=== PATIENT | female | born 1990 | race Two or more races ===

== ENCOUNTER → 2024-09-25 | Outpatient (CLI) | payer MEDICAID, SELFPAY ==
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
[2024-09-25 11:48] LABS: HCG Qualitative,Urine Negative
== END | disposition home or self-care (01) ==
PROVIDERS: Referring Provider Internal Medicine Hematology & Oncology; Visit Provider Internal Medicine Hematology & Oncology
DX: D69.3 Immune thrombocytopenic purpura (principal); D69.41 Evans syndrome; Z32.00 Encounter for pregnancy test, result unknown
CPT/HCPCS: 71260; 81025; A4649; Q9967

== ENCOUNTER 2024-11-13 10:59 | Outpatient (RCR) | payer MEDICAID, SELFPAY ==
--- NOTE | 2024-11-13 14:46 | CTCFLWUP_ITS ---
Patient: REMEDIOS PIÑA : 1990 Page 2 of 2 FOLLOW UP NOTE DATE OF SERVICE: 11/13/2024 NAME: REMEDIOS PIÑA ACCOUNT: [id number] : 1990 AGE: 34 INTERVAL HISTORY: Complains of fatigue . Fatigue is grade 8 out of 10. Gradually getting worse and. Patient do not work and just attend school. 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 Patient failed on prednisone. 06/26/2018: She had splenectomy with normalization of the platelet counts. 11/25/2018: Patient is in the clinic today for follow-up. She had labs drawn on 11/19/2018. Platelet c ount is 480,000's. She is clinically doing very well. Denies any bleeding from nose gums blood in the urine or stool. 04/25/2019: Platelet count 538,000. 05/29/2019: Colonoscopy?mild nonspecific inflammation. 06/04/2019: Platelet count 515,000 08/11/2019: Platelet count to 525,000. 11/25/2019: Platelet count 495,000, hemoglobin 12.9, WBC 12.3. 03/08/2020: Platelet count 3000, hemoglobin 10.9, MCV 112.8, WBC 6.0. Presented with bruising. Patie nt was treated with platelet transfusion, IVIG. 03/09/2020?05/13/2020: Patient was treated with 40 mg Decadron for 4 days once a month for 3 months. 04/02/2020: Platelet count 366,000, WBC 9.2, hemoglobin 12.1, MCV 103. 04/30/2020: Platelet count 407,000, hemoglobin 11.8, WBC 10.6. 05/21/2020: Platelet count 404,000, WBC 14.2, hemoglobin 12.6. 07/09/2020: Platelet count 559,000, WBC 16.7, hemoglobin 12.3. 09/07/2020: WBC 14.3, hemoglobin 8.9, MCV 106, platelets 443,000. Creatinine 0.74, AST 48, ALT 97, T bili 0.5. 09/13/2020: Pelon positive autoimmune hemolytic anemia?WBC 16.5, hemoglobin 9.4, MCV 104, platelets 418,000, nucleated RBC 2%, T bili 0.7, LDH 382, reticulocyte count 8.5%, direct Pelon test positive for anti- IgG and anticomplement. Haptoglobin level less than 10. 09/13/2020: Patient is started on prednisone 60 mg p.o. daily along with Prilosec. 10/20/2002: Hemoglobin 12.1, MCV 104, platelets 544,000, WBC 17.9. 11/10/2020: Hemoglobin 12.7, MCV 101, WBC 14.6, platelets 578,000. 03/02/2021: Patient was admitted to [facility]. Patient had CT scan of the abdomen and pel vis with IV contrast to evaluate the cause for lower abdominal pain as well as hypotension. She was found to hav e thrombosed superior mesenteric vein. Secondary to marked mucosal edema/wall thickening within the distal small bowel was noted. During the hospital stay she was also found to have Covid infection. 03/03/2021: Patient had exploratory laparotomy, small bowel resection with primary anastomosis. During the hospital stay she was treated with rituximab for her autoimmune hemolytic anemia. 03/08/2021: Patient was seen by stage electrician helper at [facility] for acute kidney injury 03/11/2021: Patient was transferred to ICU for respiratory failure and intubated. 03/26/2021: Patient was transferred to [facility] 04/20/2021: Patient was readmitted to [facility] for dehydration. 05/07/2021?06/07/2021: Ms. Piña was admitted to [facility]. 08/18/2021: Hemoglobin 11.7, MCV 93, WBC 8.6, ANC 2.3, platelets 511,000, creatinine 1.34, T bili 0.4 , AST 39, ALT 40. 10/17/2021: Hemoglobin 10.7, MCV 92, WBC 10.7, ANC 3.6, platelets 413,000, creatinine 1.32, iron satu ration 46%, direct bili less than 0.1, indirect bili less than 0.1, folate 15.4, LDH 155, haptoglobin 119, Pelon test positive for IgG as well as complement 12/15/2021: WBC 16.4, hemoglobin 12.0, MCV 94, platelets 430,000, Pelon test positive for complement. Reticulocyte count 2.1%. 07/13/2022: Direct and indirect bilirubin less than 1.0, LDH 138, Pelon test negative, haptoglobin 16 0. CBC not done. 01/01/2023: Hemoglobin 12.3, MCV 91, WBC 12.2, ANC 5.8, platelets 501,000, creatinine 1.4, T. bili 0.3 , 08/06/2023: Hemoglobin 12.4, MCV 91, platelets 435,000, WBC 11.5, ANC 5.3, creatinine 1.3, Pelon carleen t negative. T. bili less than 0.2 10/31/2023: Hemoglobin 12.2, MCV 92, platelets 480,000, WBC 10.9, ANC 5.3, creatinine 1.22, Pelon te st negative, T. bili 0.3 02/04/2024: Hemoglobin 13.1, MCV 93, platelets 463,000, WBC 13.1, ANC 7.1, creatinine 1.07, Pelon carleen t negative, T. bili 0.2. 05/07/2024: Hemoglobin 12.8, MCV 91, platelets 433,000, WBC 10.9, ANC 5.7, creatinine 1.14, Pelon carleen t negative, T. bili 0.3. 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 docusate sodium - 100 mg 1 tab Daily 2. folic acid - 1 mg 1 tab Daily 3. montelukast - 10 mg 1 tab Daily 4. pantoprazole - 40 mg 1 Twice a Day 5. warfarin - 3 mg 1 tab Daily 6. Wellbutrin SR - 150 mg 1 tab Daily Medications Last Reconciled by Catina Escalera MA on 11/13/2024 ALLERGIES: No Known Drug Allergies REVIEW OF SYSTEMS: A complete 14-point review of systems was performed and is negative except as noted in interval histo ry. PHYSICAL EXAMINATION: VITAL SIGNS: Temperature?98, B/P?123/79, Oxygen?Saturation?95% Weight?145?lbs PAIN: 0 - No pain ECOG Performance Status: 1 - Symptomatic; ambulatory; restricted in strenuous activity GENERAL APPEARANCE: Appears well, in no apparent distress, appropriately interactive. HEENT: Normocephalic, no temporal wasting, normal conjunctiva, no scleral icterus, normal hearing, li ps without lesions, neck normal range of motion. CARDIOVASCULAR: Not assessed. PULMONARY: Normal respiratory effort, no respiratory distress or use of accessory muscles, speaking i n full sentences, no tachypnea. EXTREMITIES: No pedal edema or cyanosis. SKIN: Normal skin appearance. NEUROLOGIC: Alert and oriented x4. PSHYCHIATRIC: Appropriate affect, mood normal, behavior normal, intact thought and speech. LABORATORY DATA: I have personally reviewed and interpreted each of the patient?s relevant lab tests, abnormal finding s are below: Date 03/22/20 ??GLUCOSE,RANDOM?(mg/dL) 113?H ??BLOOD?UREA?NITROGEN?(mg/dL) 21 ??CREATININE?(mg/dL) 0.80 ??SODIUM?(mmol/L) 140 ??POTASSIUM?(mmol/L) 3.8 ??CHLORIDE?(mmol/L) 108?H ??CrCl?(CandG)?(ml/min) 112.10 ??AST/SGOT?(Unit/L) 40?H ??ALT/SGPT?(Unit/L) 122?H ??ALKALINE?PHOSPHATASE?(Unit/L) 123?H ??BILIRUBIN,?TOTAL?(mg/dL) 0.2?L ??PROTEIN?TOTAL?(gm/dl) 7.1 ??ALBUMIN,?SERUM?(gm/dl) 4.4 ??GLOBULIN?(gm/dl) 2.7 ??ALBUMIN/GLOBULIN?RATIO 1.6 ??CALCIUM,?SERUM?(mg/dL) 8.5 ??CALCIUM?SERUM?(CORRECTED)?(mg/dL) 8.5 ASSESSMENT/PLAN: #1 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 daily. PT and INR are being managed by her primary c are physician. Pelon test is negative, (05/07/2024). History of ITP and autoimmune hemolytic anemia. 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 Patient had small bowel resection at [facility]. History of Covid infection history of pulmonary embolism ITP currently in remission. Recently treated with IVIG as well as 3 cycles of high-dose Decadron as described above History of splenectomy. Antiphospholipid antibody syndrome. Currently on Coumadin 3 mg p.o. daily. #2 iron deficiency Ferritin is low along with a transferrin Symptomatic with fatigue Will give IV iron Patient has been on oral iron and not responding #3 monocytosis and lymphocytosis Patient have leukocytosis and excessive lymphocytes and monocytes Will get bone marrow biopsy done Referral to equipment operator for opinion and management CBC CMP IV iron ordered Bone marrow biopsy and follow-up with Dr. Martinez to make sure patient do not have leukemia RETURN TO CLINIC: 3 to 4 weeks with repeat iron labs BILLING AND COMPLIANCE: I reviewed external records from providers outside my specialty as summarized above. I spent a total of 50 minutes on this patient?s care on the day of their visit excluding time spent related to any bi lled procedures. This time includes time spent with the patient as well as time spent documenting in the medical record, reviewing patients records and tests, obtaining history, placing orders, communi cating with other healthcare professionals, counseling the patient, family or caregiver, and/or care coordination for the diagnoses above. Electronically Signed by: Joel Barrios MD T: 2:44 PM CC: PCP: Joel Barrios Referring: Joel Barrios This document was completed utilizing speech recognition software. Grammatical errors, random word in sertions, pronoun errors, and incomplete sentences are an occasional consequence of this system due t o software limitations, ambient noise, and hardware issues. Any formal questions or concerns about e content, text or information contained within the body of this dictation should be directly address ed to the provider for clarification.
== END 2024-11-21 23:59 | disposition home or self-care (01) ==
LOC: SCTC 10:59
PROVIDERS: PCP Nurse Practitioner Family; Referring Provider Internal Medicine Hematology & Oncology; Visit Provider Internal Medicine Hematology & Oncology
DX: D69.3 Immune thrombocytopenic purpura (principal); E61.1 Iron deficiency; D59.12 Cold autoimmune hemolytic anemia; D72.821 Monocytosis (symptomatic); D72.820 Lymphocytosis (symptomatic); Z86.711 Personal history of pulmonary embolism; Z90.81 Acquired absence of spleen; D68.61 Antiphospholipid syndrome; Z79.01 Long term (current) use of anticoagulants
CPT/HCPCS: 99212; G0463

== ENCOUNTER 2025-02-11 13:51 | Outpatient (RCR) | payer MEDICAID, SELFPAY ==
--- NOTE | 2025-02-11 14:35 | CTCFLWUP_ITS ---
Patient: REMEDIOS PIÑA : 1990 Page 2 of 2 FOLLOW UP NOTE DATE OF SERVICE: 02/11/2025 NAME: REMEDIOS PIÑA ACCOUNT: [id number] : 1990 AGE: 34 INTERVAL HISTORY: Remedios Piña presents for follow-up of abnormal blood counts and fatigue. She has a history of ITP and iron deficiency anemia. The patient reports significant improvement in her fatigue levels since the last visit. Previously, she rated her fatigue as 8 out of 10, but now it has decreased to 2-3 out of 10. She attributes this improvement to taking iron supplements as prescribed. The patient confirms she is taking 3 milligrams of Coumadin daily for an unspecified condition. She mentions that in the past, she received injections which helped significantly with her murmur. The patient denies alcohol consumption. She reports no new symptoms or concerns during this visit. Medical History - Iron deficiency anemia - Immune thrombocytopenia (ITP) Surgical History - Bone marrow biopsy performed by Dr. Jonathan Abraham Medications and Supplements - Iron - One tablet every other day - Helped with fatigue and improved hemoglobin levels - Cumide 3 mg daily - Injections (unspecified) - Helped with murmur - No longer taking Social History - Substance Use: Denies alcohol consumption Review of Systems General: Positive for fatigue, improved from 8/10 to 2-3/10. 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 Patient failed on prednisone. 06/26/2018: She had splenectomy with normalization of the platelet counts. 03/08/2020: Platelet count 3000, hemoglobin 10.9, MCV 112.8, WBC 6.0. Presented with bruising. Patient was treated with platelet transfusion, IVIG. 03/09/2020?05/13/2020: Patient was treated with 40 mg Decadron for 4 days once a month for 3 months. %, direct Pelon test positive for anti-IgG and anticomplement. Haptoglobin level less than 10. 09/13/2020: Patient is started on prednisone 60 mg p.o. daily along with Prilosec. 10/20/2002: Hemoglobin 12.1, MCV 104, platelets 544,000, WBC 17.9. 11/10/2020: Hemoglobin 12.7, MCV 101, WBC 14.6, platelets 578,000. 03/02/2021: Patient was admitted to [facility]. Patient had CT scan of the abdomen and pelvis with IV contrast to evaluate the cause for lower abdominal pain as well as hypotension. She was found to have thrombosed superior mesenteric vein. Secondary to marked mucosal edema/wall thickening within the distal small bowel was noted. During the hospital stay she was also found to have Covid infection. 03/03/2021: Patient had exploratory laparotomy, small bowel resection with primary anastomosis. During the hospital stay she was treated with rituximab for her autoimmune hemolytic anemia. 03/08/2021: Patient was seen by oil field laborer at [facility] for acute kidney injury 03/11/2021: Patient was transferred to ICU for respiratory failure and intubated. 03/26/2021: Patient was transferred to [facility] 04/20/2021: Patient was readmitted to [facility] for dehydration. 05/07/2021?06/07/2021: Ms. Piña was admitted to [facility]. 08/18/2021: Hemoglobin 11.7, MCV 93, WBC 8.6, ANC 2.3, platelets 511,000, creatinine 1.34, T bili 0.4, AST 39, ALT 40. 10/17/2021: Hemoglobin 10.7, MCV 92, WBC 10.7, ANC 3.6, platelets 413,000, creatinine 1.32, iron saturation 46%, direct bili less than 0.1, indirect bili less than 0.1, folate 15.4, LDH 155, haptoglobin 119, Pelon test positive for IgG as well as complement 12/15/2021: WBC 16.4, hemoglobin 12.0, MCV 94, platelets 430,000, Pelon test positive for complement. Reticulocyte count 2.1%. 07/13/2022: Direct and indirect bilirubin less than 1.0, LDH 138, Pelon test negative, haptoglobin 160. CBC not done. 01/01/2023: Hemoglobin 12.3, MCV 91, WBC 12.2, ANC 5.8, platelets 501,000, creatinine 1.4, T. bili 0.3, 08/06/2023: Hemoglobin 12.4, MCV 91, platelets 435,000, WBC 11.5, ANC 5.3, creatinine 1.3, Pelon test negative. T. bili less than 0.2 10/31/2023: Hemoglobin 12.2, MCV 92, platelets 480,000, WBC 10.9, ANC 5.3, creatinine 1.22, Pelon test negative, T. bili 0.3 02/04/2024: Hemoglobin 13.1, MCV 93, platelets 463,000, WBC 13.1, ANC 7.1, creatinine 1.07, Pelon test negative, T. bili 0.2. 05/07/2024: Hemoglobin 12.8, MCV 91, platelets 433,000, WBC 10.9, ANC 5.7, creatinine 1.14, Pelon test negative, T. bili 0.3. 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 docusate sodium - 100 mg 1 tab Daily 2. ferrous gluconate - 324 mg (38 mg iron) 1 tab TAKE 1 TAB EVERY OTHER DAY 3. folic acid - 1 mg 1 tab Daily 4. Lovenox - 60 mg/0.6 mL 60 mg As directed 5. montelukast - 10 mg 1 tab Daily 6. pantoprazole - 40 mg 1 Twice a Day 7. warfarin - 3 mg 1 tab Daily 8. Wellbutrin SR - 150 mg 1 tab Daily Medications Last Reconciled by Ashia De RN on 02/11/2025 ALLERGIES: No Known Drug Allergies REVIEW OF SYSTEMS: A complete 14-point review of systems was performed and is negative except as noted in interval history. PHYSICAL EXAMINATION: VITAL SIGNS: Temperature?99.4, B/P?131/86, Oxygen?Saturation?96% Weight?146?lbs PAIN: 0 - No pain GENERAL APPEARANCE: Appears well, in no apparent distress, appropriately interactive. HEENT: Normocephalic, no temporal wasting, normal conjunctiva, no scleral icterus, normal hearing, lips without lesions, neck normal range of motion. CARDIOVASCULAR: Not assessed. PULMONARY: Normal respiratory effort, no respiratory distress or use of accessory muscles, speaking in full sentences, no tachypnea. EXTREMITIES: No pedal edema or cyanosis. SKIN: Normal skin appearance. NEUROLOGIC: Alert and oriented x4. PSHYCHIATRIC: Appropriate affect, mood normal, behavior normal, intact thought and speech. LABORATORY DATA: I have personally reviewed and interpreted each of the patient?s relevant lab tests, abnormal findings are below: Date 03/16/20 03/22/20 ??WHITE?BLOOD?COUNT?(Thou/mm3) ? 12.7?H ??RED?BLOOD?COUNT?(Miln/mm3) ? 3.25?L ??HEMOGLOBIN?(gm/dl) ? 11.4?L ??HEMATOCRIT?(%) ? 33.4?L ??PLATELET?COUNT?(Thou/mm3) ? 81?L ??NEUTROPHILS?%,?AUTO?(%) ? 65 ??LYMPH?%,?AUTO?(%) ? 23 ??NEUTROPHILS,?AUTO?(Thou/mm3) ? 8.2?H ??GLUCOSE,RANDOM?(mg/dL) 102 113?H ??BLOOD?UREA?NITROGEN?(mg/dL) 17 21 ??CREATININE?(mg/dL) 0.80 0.80 ??SODIUM?(mmol/L) 138 140 ??POTASSIUM?(mmol/L) 3.8 3.8 ??CHLORIDE?(mmol/L) 103 108?H ??CrCl?(CandG)?(ml/min) 113.46 112.10 ??AST/SGOT?(Unit/L) 46?H 40?H ??ALT/SGPT?(Unit/L) 82?H 122?H ??ALKALINE?PHOSPHATASE?(Unit/L) 110 123?H ??BILIRUBIN,?TOTAL?(mg/dL) 0.2?L 0.2?L ??PROTEIN?TOTAL?(gm/dl) 6.9 7.1 ??ALBUMIN,?SERUM?(gm/dl) 3.8 4.4 ??GLOBULIN?(gm/dl) 3.1 2.7 ??ALBUMIN/GLOBULIN?RATIO 1.2 1.6 ??CALCIUM,?SERUM?(mg/dL) 8.3 8.5 ??CALCIUM?SERUM?(CORRECTED)?(mg/dL) 8.5 8.5 ??TOTAL?IRON?BINDING?CAP?(S*)?(mcg/dL) 332 ? ??UNBOUND?IBC?(mcg/dL) 270 ? ASSESSMENT/PLAN: #1 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 daily. PT and INR are being managed by her primary care physician. Pelon test is negative, (05/07/2024). History of ITP and autoimmune hemolytic anemia. 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 Patient had small bowel resection at [facility]. History of Covid infection history of pulmonary embolism ITP currently in remission. Recently treated with IVIG as well as 3 cycles of high-dose Decadron as described above History of splenectomy. Antiphospholipid antibody syndrome. Currently on Coumadin 3 mg p.o. daily. Leukocytosis with Lymphocytosis and Monocytosis Assessment: Recent labs show WBC of 11.6 x 10^9/L with elevated lymphocytes (4.8 x 10^9/L) and monocytes (1.1 x 10^9/L). This may be reactive or require further evaluation if persistent. Plan: - Monitor WBC and differential with repeat labs . Iron Deficiency Anemia Assessment: Patient's fatigue has improved significantly from 05/31 to 2-3/10, likely due to iron supplementation. Recent labs show improvement in hemoglobin from 13 to 12.6 g/dL. Platelets remain elevated at 577 x 10^9/L, which may be related to ongoing iron deficiency. LDH and haptoglobin are normal, indicating no active hemolysis. Plan: - Continue iron supplementation: one tablet every other day - Order repeat labs to monitor progress - Reassess iron status and symptoms at follow-up Elevated Liver Function Tests Assessment: Patient has elevated liver function tests with alkaline phosphatase of 131 U/L, AST of 54 U/L, and ALT of 82 U/L. Patient denies alcohol consumption. Further evaluation may be necessary to determine the etiology of these abnormalities. Plan: - Monitor LFTs with repeat labs History of Immune Thrombocytopenia (ITP) Assessment: Patient has a history of ITP. Current platelet count is elevated at 577 x 10^9/L, which may be related to iron deficiency rather than active ITP. No evidence of immune hemolytic anemia based on normal LDH and haptoglobin levels. Plan: - Continue monitoring platelet counts with repeat labs RETURN TO CLINIC: BILLING AND COMPLIANCE: I reviewed external records from providers outside my specialty as summarized above. I spent a total of 50 minutes on this patient?s care on the day of their visit excluding time spent related to any billed procedures. This time includes time spent with the patient as well as time spent documenting in the medical record, reviewing patients records and tests, obtaining history, placing orders, communicating with other healthcare professionals, counseling the patient, family or caregiver, and/or care coordination for the diagnoses above. Electronically Signed by: Joel Barrios MD T: 2:33 PM CC: PCP: Shauna Olsen Referring: Shauna Olsen This document was completed utilizing speech recognition software. Grammatical errors, random word insertions, pronoun errors, and incomplete sentences are an occasional consequence of this system due to software limitations, ambient noise, and hardware issues. Any formal questions or concerns about the content, text or information contained within the body of this dictation should be directly addressed to the provider for clarification.
== END 2025-02-18 23:59 | disposition home or self-care (01) ==
LOC: SCTC 13:51
PROVIDERS: PCP Nurse Practitioner Family; Referring Provider Nurse Practitioner Family; Visit Provider Internal Medicine Hematology & Oncology
DX: D69.3 Immune thrombocytopenic purpura (principal); D50.9 Iron deficiency anemia, unspecified; D59.12 Cold autoimmune hemolytic anemia; R74.8 Abnormal levels of other serum enzymes; D68.61 Antiphospholipid syndrome; Z86.711 Personal history of pulmonary embolism; Z79.01 Long term (current) use of anticoagulants; Z86.718 Personal history of other venous thrombosis and embolism; Z90.81 Acquired absence of spleen
CPT/HCPCS: 99212; G0463

== ENCOUNTER 2025-04-21 14:40 | Outpatient (RCR) | payer MEDICAID, SELFPAY ==
--- NOTE | 2025-05-10 21:29 | CTCFLWUP_ITS ---
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 Past medical history includes asplenia and colon cancer prevention monitoring. Bone marrow biopsy showed normal marrow with abnormal myeloid maturation and absent iron. Oral iron supplementation has been ineffective. The plan includes repeating iron studies after one week without supplements, pursuing insurance approval for iron infusions, and continuing Augmentin for the mosquito bite due to increased infection risk from asplenia. 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 The patient's hemoglobin has improved, but they are currently experiencing iron deficiency anemia. The patient reports that their iron levels are very low, with iron being completely absent in their bone marrow. Oral iron supplementation has not been effective in addressing this deficiency. Iron infusions were ordered in December but have not been received due to insurance requiring proof of necessity. The patient is currently taking codeine for an unspecified reason. Wang recently experienced a mosquito bite, which is of particular concern due to their lack of a spleen, putting them at higher risk for infections. They have been prescribed Augmentin to address this issue and prevent potential complications. The patient has a history of colon cancer prevention and follows up with a crm marketing executive regularly for colonoscopies. A recent colonoscopy showed no specific inflammation. The patient also underwent a bone marrow biopsy, which revealed normal marrow with abnormal myeloid maturation, no increased blast, and severely deficient basal iron. Medications and Supplements - Codeine - Iron tablets - Oral iron not effective. - Multivitamins - Iodine - Beta-ion - Augmentin - 20 tablets prescribed. - Take for 5-7 days. - Keep remaining for future infections. Objective: Physical Examination Respiratory: [place] something in lungs. Laboratory, Imaging, and Diagnostic Test Results - Blood work ([facility]): - Hemoglobin: Improved (specific value not provided) - Leukocytosis (specific value not provided) - Iron: Very low - Bone marrow biopsy: - Normal marrow - Abnormal myeloid maturation - No increased blast - Basal iron: Absent - Iron: Severely deficient - Colonoscopy: No specific inflammation - Previous results: - WBC: 3300 (date not specified) ONCOLOGY HISTORY: DIAGNOSIS: ?CloneDiagnosis? DATE OF DIAGNOSIS: STAGE/TNM: TREATMENT HISTORY: Care?Plan Start?Date Cycle Day Intent HISTORY OF PRESENT ILLNESS: PREVIOUS NOTE: Remedios Pike is a 34-year-old Turkmen-speaking female with history of ITP diagnosed in May 2018. Patient failed on prednisone. 06/26/2018: She had splenectomy with normalization of the platelet counts. 03/08/2020: Platelet count 3000, hemoglobin 10.9, MCV 112.8, WBC 6.0. Presented with bruising. Patient was treated with platelet transfusion, IVIG. 03/09/2020?05/13/2020: Patient was treated with 40 mg Decadron for 4 days once a month for 3 months. %, direct Pelon test positive for anti-IgG and anticomplement. Haptoglobin level less than 10. 09/13/2020: Patient is started on prednisone 60 mg p.o. daily along with Prilosec. 10/20/2002: Hemoglobin 12.1, MCV 104, platelets 544,000, WBC 17.9. 11/10/2020: Hemoglobin 12.7, MCV 101, WBC 14.6, platelets 578,000. 03/02/2021: Patient was admitted to [facility]. Patient had CT scan of the abdomen and pelvis with IV contrast to evaluate the cause for lower abdominal pain as well as hypotension. She was found to have thrombosed superior mesenteric vein. Secondary to marked mucosal edema/wall thickening within the distal small bowel was noted. During the hospital stay she was also found to have Covid infection. 03/03/2021: Patient had exploratory laparotomy, small bowel resection with primary anastomosis. During the hospital stay she was treated with rituximab for her autoimmune hemolytic anemia. 03/08/2021: Patient was seen by plastics fabricator and assembler at [facility] for acute kidney injury 03/11/2021: Patient was transferred to ICU for respiratory failure and intubated. 03/26/2021: Patient was transferred to [facility] 04/20/2021: Patient was readmitted to [facility] for dehydration. 05/07/2021?06/07/2021: Ms. Piña was admitted to [facility]. 08/18/2021: Hemoglobin 11.7, MCV 93, WBC 8.6, ANC 2.3, platelets 511,000, creatinine 1.34, T bili 0.4, AST 39, ALT 40. 10/17/2021: Hemoglobin 10.7, MCV 92, WBC 10.7, ANC 3.6, platelets 413,000, creatinine 1.32, iron saturation 46%, direct bili less than 0.1, indirect bili less than 0.1, folate 15.4, LDH 155, haptoglobin 119, Pelon test positive for IgG as well as complement 12/15/2021: WBC 16.4, hemoglobin 12.0, MCV 94, platelets 430,000, Pelon test positive for complement. Reticulocyte count 2.1%. 07/13/2022: Direct and indirect bilirubin less than 1.0, LDH 138, Pelon test negative, haptoglobin 160. CBC not done. 01/01/2023: Hemoglobin 12.3, MCV 91, WBC 12.2, ANC 5.8, platelets 501,000, creatinine 1.4, T. bili 0.3, 08/06/2023: Hemoglobin 12.4, MCV 91, platelets 435,000, WBC 11.5, ANC 5.3, creatinine 1.3, Pelon test negative. T. bili less than 0.2 10/31/2023: Hemoglobin 12.2, MCV 92, platelets 480,000, WBC 10.9, ANC 5.3, creatinine 1.22, Pelon test negative, T. bili 0.3 02/04/2024: Hemoglobin 13.1, MCV 93, platelets 463,000, WBC 13.1, ANC 7.1, creatinine 1.07, Pelon test negative, T. bili 0.2. 05/07/2024: Hemoglobin 12.8, MCV 91, platelets 433,000, WBC 10.9, ANC 5.7, creatinine 1.14, Pelon test negative, T. bili 0.3. Laboratory, Imaging, and Diagnostic Test Results - Most recent results: - CBC: WBC 11.6, Hemoglobin 13 g/dL, Platelets 577, Lymphocytes (elevated), Monocytes (elevated) - LFTs: ALK-phosphate 131 (high), AST 54 (mildly elevated), ALT 82 (mildly elevated) - LDH: Normal - Haptoglobin: Normal - Previous results: - CBC: WBC 10, Platelets 577, Monocytes 1.1 (elevated), Absolute lymphocytes 4.8 (elevated) - Hemoglobin: 12.6 g/dLOTHER MEDICAL HISTORY/CONDITIONS: OTHER MEDICAL HISTORY/CONDITIONS: FAMILY HISTORY: ?Clone Family Hx? 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 MEDICATIONS: 1. Augmentin - 500-125 mg 1 tab twice daily 2. docusate sodium - 100 mg 1 tab Daily 3. ferrous gluconate - 324 mg (38 mg iron) 1 tab TAKE 1 TAB EVERY OTHER DAY 4. folic acid - 1 mg 1 tab Daily 5. Lovenox - 60 mg/0.6 mL 60 mg As directed 6. montelukast - 10 mg 1 tab Daily 7. warfarin - 3 mg 1 tab Daily 8. Wellbutrin SR - 150 mg 1 tab Daily?[place]ra Meds? Medications Last Reconciled by Leslye Hernandez MA on 04/21/2025 ALLERGIES: No Known Drug Allergies REVIEW OF SYSTEMS: A complete 14-point review of systems was performed and is negative except as noted in interval history. PHYSICAL EXAMINATION:?CloneBlock PE? VITAL SIGNS: Temperature?98, B/P?129/85, Oxygen?Saturation?97% Weight?146?lbs PAIN: 0 - No pain ECOG Performance Status: 1 - Symptomatic; ambulatory; restricted in strenuous activity GENERAL APPEARANCE: Appears well, in no apparent distress, appropriately interactive. HEENT: Normocephalic, no temporal wasting, normal conjunctiva, no scleral icterus, normal hearing, lips without lesions, neck normal range of motion. CARDIOVASCULAR: Not assessed. PULMONARY: Normal respiratory effort, no respiratory distress or use of accessory muscles, speaking in full sentences, no tachypnea. EXTREMITIES: No pedal edema or cyanosis. SKIN: Normal skin appearance. NEUROLOGIC: Alert and oriented x4. PSHYCHIATRIC: Appropriate affect, mood normal, behavior normal, intact thought and speech. LABORATORY DATA: I have personally reviewed and interpreted each of the patient?s relevant lab tests, abnormal findings are below: Date 03/16/20 03/22/20 ??WHITE?BLOOD?COUNT?(Thou/mm3) ? 12.7?H ??RED?BLOOD?COUNT?(Miln/mm3) ? 3.25?L ??HEMOGLOBIN?(gm/dl) ? 11.4?L ??HEMATOCRIT?(%) ? 33.4?L ??PLATELET?COUNT?(Thou/mm3) ? 81?L ??NEUTROPHILS?%,?AUTO?(%) ? 65 ??LYMPH?%,?AUTO?(%) ? 23 ??NEUTROPHILS,?AUTO?(Thou/mm3) ? 8.2?H ??GLUCOSE,RANDOM?(mg/dL) 102 113?H ??BLOOD?UREA?NITROGEN?(mg/dL) 17 21 ??CREATININE?(mg/dL) 0.80 0.80 ??SODIUM?(mmol/L) 138 140 ??POTASSIUM?(mmol/L) 3.8 3.8 ??CHLORIDE?(mmol/L) 103 108?H ??CrCl?(CandG)?(ml/min) 113.46 112.10 ??AST/SGOT?(Unit/L) 46?H 40?H ??ALT/SGPT?(Unit/L) 82?H 122?H ??ALKALINE?PHOSPHATASE?(Unit/L) 110 123?H ??BILIRUBIN,?TOTAL?(mg/dL) 0.2?L 0.2?L ??PROTEIN?TOTAL?(gm/dl) 6.9 7.1 ??ALBUMIN,?SERUM?(gm/dl) 3.8 4.4 ??GLOBULIN?(gm/dl) 3.1 2.7 ??ALBUMIN/GLOBULIN?RATIO 1.2 1.6 ??CALCIUM,?SERUM?(mg/dL) 8.3 8.5 ??CALCIUM?SERUM?(CORRECTED)?(mg/dL) 8.5 8.5 ??TOTAL?IRON?BINDING?CAP?(S*)?(mcg/dL) 332 ? ??UNBOUND?IBC?(mcg/dL) 270 ? ASSESSMENT/PLAN:?Irineo Barrios Assessment/Plan? 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 The patient is currently on Coumadin 3 mg p.o. daily. PT and INR are being managed by her primary care physician. Pelon test is negative, (05/07/2024). History of ITP and autoimmune hemolytic anemia. 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 Patient had small bowel resection at [facility]. History of Covid infection history of pulmonary embolism ITP currently in remission. Recently treated with IVIG as well as 3 cycles of high-dose Decadron as described above History of splenectomy. Antiphospholipid antibody syndrome. Currently on Coumadin 3 mg p.o. daily. Leukocytosis with Lymphocytosis and Monocytosis Assessment: Recent labs show WBC of 11.6 x 10^9/L with elevated lymphocytes (4.8 x 10^9/L) and monocytes (1.1 x 10^9/L). This may be reactive or require further evaluation if persistent. Plan: - Monitor WBC and differential with repeat labs Iron Deficiency Anemia Assessment: Patient has severe iron deficiency anemia, with hemoglobin showing improvement. Bone marrow biopsy revealed normal marrow with abnormal myeloid maturation, no increased blast, and absent basal iron, confirming severe deficiency. Oral iron supplementation has been ineffective. Iron level in bone marrow is zero. Iron infusions were ordered in December but not received due to insurance requiring proof. Plan: - Repeat iron studies after one week without iron tablets or multivitamins - Pursue approval for iron infusions with insurance - Follow up on iron deficiency every 4 months - Telephone appointment in 4 weeks Hereditary Hemochromatosis Assessment: Patient has a known diagnosis of hereditary hemochromatosis. Paradoxically, current iron levels are very low, necessitating iron infusions. Plan: - Continue monitoring iron levels - Proceed with iron infusions once insurance approval is obtained SITP-11 Syndrome Assessment: Patient has been diagnosed with SITP-[address] Lujan. This condition is associated with the patient's hematological issues and requires ongoing management. 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 A colonoscopy showed no specific inflammation. Current status and management of this condition were not discussed in detail during this visit. Plan: - Continue current management plan - Monitor for any signs of recurrence or complications Asplenia Assessment: Patient has undergone spleen removal, increasing the risk of infections. Plan: - Prescribe Augmentin for current mosquito bite: 20 tablets, to be taken for 5-7 days - Educate patient to start antibiotics immediately for any infections - Instruct family to inform all healthcare providers about spleen removal - Arrange necessary vaccinations for immunity - Communicate asplenia status to primary care provider Colon Cancer Prevention Assessment: Patient is undergoing regular colon cancer prevention measures due to unspecified risk factors. Plan: - Continue follow-up with Gastroenterology for regular colonoscopies - Recommend testing for PMS-2 gene Leukocytosis Assessment: Patient presents with leukocytosis. The cause and severity were not specified in the discussion. Plan: - Monitor for bleeding Lung Abnormality Assessment: During physical examination, an abnormality was felt in the lungs. No imaging has been performed to further evaluate this finding. Plan: - Consider appropriate imaging studies to evaluate the lung abnormality (not explicitly stated in the transcript) ORDERS: Order # Description [id number] Comprehensive Metabolic Panel - 12 + CBC with Auto Diff [id number] Reticulocyte Count + Iron Panel + Ferritin + Vitamin B-12 + Folic Acid; Serum + Sedimentation Rate [id number] MD Follow Up 4 Week RETURN TO CLINIC: I reviewed the diagnosis, prognosis, and recommended treatment/procedure options with the patient (and/or their legal industrial sales representative), including the potential benefits, risks, side effects and alternative therapies. We also discussed the option of no treatment and the possibility of clinical trial participation, if applicable. All questions were addressed, and they demonstrated understanding. They provided informed consent to proceed with the proposed plan of care. BILLING AND COMPLIANCE: I reviewed external records from providers outside my specialty as summarized above. I spent a total of 50 minutes on this patient?s care on the day of their visit excluding time spent related to any billed procedures. This time includes time spent with the patient as well as time spent documenting in the medical record, reviewing patients records and tests, obtaining history, placing orders, communicating with other healthcare professionals, counseling the patient, family or caregiver, and/or care coordination for the diagnoses above. Electronically Signed by: Joel Barrios MD T: 9:27 PM CC: PCP: Shauna Olsen Referring: Shauna Olsen This document was completed utilizing speech recognition software. Grammatical errors, random word insertions, pronoun errors, and incomplete sentences are an occasional consequence of this system due to software limitations, ambient noise, and hardware issues. Any formal questions or concerns about the content, text or information contained within the body of this dictation should be directly addressed to the provider for clarification.
== END 2025-05-21 23:59 | disposition home or self-care (01) ==
LOC: SCTC 14:40
PROVIDERS: PCP Nurse Practitioner Family; Referring Provider Nurse Practitioner Family; Visit Provider Internal Medicine Hematology & Oncology
DX: D69.3 Immune thrombocytopenic purpura (principal); E83.110 Hereditary hemochromatosis; K55.059 Acute (reversible) ischemia of intestine, part and extent unspecified; Z86.711 Personal history of pulmonary embolism; Z79.01 Long term (current) use of anticoagulants; D59.10 Autoimmune hemolytic anemia, unspecified; D59.12 Cold autoimmune hemolytic anemia; Z86.16 Personal history of COVID-19; Z90.81 Acquired absence of spleen; D68.61 Antiphospholipid syndrome; D72.820 Lymphocytosis (symptomatic)
CPT/HCPCS: 99212; G0463

== ENCOUNTER 2025-07-13 14:03 | Outpatient (RCR) | payer MEDICAID, SELFPAY | END 2025-07-21 23:59 | disposition home or self-care (01) | LOC: SCTC 14:03 | PROVIDERS: PCP Nurse Practitioner Family; Referring Provider Nurse Practitioner Family; Visit Provider Nurse Practitioner Family | DX: D69.3 Immune thrombocytopenic purpura (principal); D50.9 Iron deficiency anemia, unspecified; D68.61 Antiphospholipid syndrome; D72.821 Monocytosis (symptomatic); D72.820 Lymphocytosis (symptomatic); Z90.81 Acquired absence of spleen; Z15.09 Genetic susceptibility to other malignant neoplasm | CPT/HCPCS: 99212; G0463 ==

== ENCOUNTER 2025-08-20 13:53 | Outpatient (RCR) | payer MEDICAID, SELFPAY | END 2025-08-21 23:59 | disposition home or self-care (01) | LOC: SCTC 13:53 | PROVIDERS: PCP Nurse Practitioner Family; Referring Provider Nurse Practitioner Family; Visit Provider Internal Medicine Hematology & Oncology | DX: D50.9 Iron deficiency anemia, unspecified (principal); D69.3 Immune thrombocytopenic purpura; D68.61 Antiphospholipid syndrome; Z15.09 Genetic susceptibility to other malignant neoplasm | CPT/HCPCS: 96365; 96375; A4216; J1756; J2919; J3490; J7040 ==

== ENCOUNTER 2025-09-10 13:37 | Outpatient (RCR) | payer MEDICAID, SELFPAY | END 2025-09-20 23:59 | disposition home or self-care (01) | LOC: SCTC 13:37 | PROVIDERS: PCP Internal Medicine; Referring Provider Internal Medicine; Visit Provider Nurse Practitioner Family | DX: D50.9 Iron deficiency anemia, unspecified (principal); D68.61 Antiphospholipid syndrome; D69.3 Immune thrombocytopenic purpura; R74.01 Elevation of levels of liver transaminase levels; Z90.81 Acquired absence of spleen; Z86.718 Personal history of other venous thrombosis and embolism | CPT/HCPCS: 96365; 96375; J1756; J2919; J3490; J7040 ==

== ENCOUNTER 2025-10-12 10:01 | Outpatient (RCR) | payer MEDICAID, SELFPAY | END 2025-10-21 23:59 | disposition home or self-care (01) | LOC: SCTC 10:01 | PROVIDERS: Referring Provider Nurse Practitioner Family; Visit Provider Nurse Practitioner Family | DX: D69.3 Immune thrombocytopenic purpura (principal); D68.61 Antiphospholipid syndrome; D50.9 Iron deficiency anemia, unspecified; Z15.09 Genetic susceptibility to other malignant neoplasm | CPT/HCPCS: 99212; G0463 ==